=== PATIENT | female | born 1955 | race Caucasian/White ===

== ENCOUNTER 2017-05-06 21:07 | Emergency (ER) | payer SELFPAY ==
--- NOTE | 2017-05-06 21:55 | ED PDOC ---
Upper Extremity Pain/Injury Time Seen by Provider: 05/06/17 21:12 Chief Complaint (Nursing): Upper Extremity Problem/Injury Chief Complaint (Provider): Left shoulder pain History Per: Patient History/Exam Limitations: no limitations Additional Complaint(s): Patient is a 62 year old female presenting to the emergency department for left shoulder and nose pain after tripping over some stairs and falling on her left side and face. Denies loss of consciousness or memory deficits. PCP: none provided Past Medical History Reviewed: Historical Data, Nursing Documentation, Vital Signs, Unable To Obtain Vital Signs: Last Vital Signs Temp 97.9 F 05/06/17 21:10 Pulse 84 05/06/17 21:10 Resp 18 05/06/17 21:10 BP 175/100 H 05/06/17 21:10 Pulse Ox 99 05/06/17 21:10 - Family History Family History: States: Unknown Family Hx - Social History Current smoker - smoking cessation education provided: No Ex-Smoker (has not smoked in the last 12 months): No Alcohol: None Drugs: Denies - Home Medications Home Medications: Ambulatory Orders Medication Instructions Recorded Ibuprofen [Motrin Tab] 600 mg PO Q6 #30 tab 05/07/17 traMADol [Ultram] 50 mg PO TID #12 tab 05/07/17 - Allergies Allergies/Adverse Reactions: Allergies Allergy/AdvReac Type Severity Reaction Status Date / Time Unobtainable Allergy Verified 05/06/17 21:22 Review of Systems ROS Statement: Except As Marked, All Systems Reviewed And Found Negative ENT: Positive for: Nose Pain Musculoskeletal: Positive for: Shoulder Pain (left) Neurological: Negative for: Other (loss of consciousness or memory loss) Physical Exam - Reviewed Nursing Documentation Reviewed: Yes Vital Signs Reviewed: Yes - Physical Exam Appears: Positive for: Well, Non-toxic, No Acute Distress Head Exam: Positive for: ATRAUMATIC, NORMAL INSPECTION, NORMOCEPHALIC Skin: Positive for: Normal Color, Warm, Dry Eye Exam: Positive for: EOMI, Normal appearance, PERRL ENT: Positive for: Other (Nasal bridge swelling and 1.5 cm laceration on bridge of the nose. No septal hematoma.) Neck: Positive for: Normal, Painless ROM, Supple Cardiovascular/Chest: Positive for: Regular Rate, Rhythm. Negative for: Murmur Respiratory: Positive for: Normal Breath Sounds. Negative for: Accessory Muscle Use, Respiratory Distress Pulses-Radial (L): 2+ Pulses-Radial (R): 2+ Gastrointestinal/Abdominal: Positive for: Normal Exam, Soft. Negative for: Tenderness Extremity: Positive for: Tenderness (Left shoulder tender to palpation), Other ( Decreased sensation of ulnar aspect of left hand, able to spread fingers fully against resistance, able to flex and extend wrist, +thumbs up +okay sign +able to oppose thumb to all fingers). 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 Initial plan: Dilaudid 1 mg IVP Morphine 4 mg IVP Zofran 4 mg IVP X-Ray Left Humerus X-ray Left Shoulder Reevaluation 2248 Sedation note - see procedure note 2254 XR SHOULDER LEFT FINDINGS: Bones/joints: Inferior and medial dislocation of the left humeral head in relation to the glenoid fossa, consistent with anterior dislocation. Acute comminuted fracture of the lateral margin of the humeral head is also detected. Soft tissues: Limited. IMPRESSION: Anterior dislocation with additional finding is of acute fracture of the posterior-lateral humeral head is suggestive of a Hill-Sachs pattern 2320 Patient is waking up after sedation and reports feeling much better. [address] Rodriguez. Notes that clinical operations consultant paresthesias are not uncommon and usually resolve on their own. 0025 Discussed with patient opioid risks and benefits, as well as addictive potential. Patient verbalizes understanding. 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 Patient medically stable for discharge home. Follow up with Dr. Rodriguez on 2016. Pt. feeling much better. Scribe Attestation: Documented by Michelle Saul and Elin Jackson, acting as a scribe for Paul Denson MD. Provider Scribe Attestation: All medical record entries made by the Scribe were at my direction and personally dictated by me. I have reviewed the chart and agree that the record accurately reflects my personal performance of the history, physical exam, medical decision making, and the department course for this patient. I have also personally directed, reviewed, and agree with the discharge instructions and disposition. Procedures - Time-Out Type of Procedure: Joint Reduction Site of Procedure: Left Shoulder Correct Patient: Yes Correct Procedure: Yes Correct Site Marked: Yes Physician Name: Dr. Paul Denson - Joint Reduction Joint Reduction Site: shoulder (L) Conscious Sedation: Yes Reduction Attempts: 2 Pre-Procedure NV Exam: Yes Post Joint Reduction Film: joint reduced Disposition - Clinical Impression Clinical Impression: Shoulder dislocation - Disposition Referrals: Cory Rodriguez III, MD [Staff Provider] - Disposition: Routine/Home Disposition Time: 00:29 Condition: STABLE Prescriptions: Ibuprofen [Motrin Tab] 600 mg PO Q6 #30 tab traMADol [Ultram] 50 mg PO TID #12 tab Instructions: Shoulder Dislocation (ED), Deep Sedation (ED), Opioid Pain Management (ED) Forms: [employer] ([place]) - POA Present On Arrival: None Procedure - Procedure and Findings -: DEEP SEDATION PROCEDURE NOTE: 05/06/2017 2249 Patient placed on manager monitoring and end title CO2 monitor. IV access established, 1L NS given Patient consented to procedure: verbal/written consent obtained. Time out done. Propofol given. Patient continuously monitored on end title CO2 and cardiac monitors. Patient tolerated procedure well. Prod Sedation INTRA-PROCEDURE - Medications Medications Given: Propofol (Diprivan) 100 mg IV ONCE ONE Stop: 05/07/17 00:07 Discontinued Medications Hydromorphone HCl (Dilaudid) 1 mg IVP STAT STA Stop: 05/06/17 21:43 Last Admin: 05/06/17 21:46 Dose: 1 mg Hydromorphone HCl (Dilaudid) Confirm Administered Dose 2 mg .ROUTE .STK-MED ONE Stop: 05/06/17 21:46 Hydromorphone HCl (Dilaudid) 2 mg IVP STAT STA Stop: 05/06/17 22:10 Last Admin: 05/06/17 22:25 Dose: 2 mg Hydromorphone HCl (Dilaudid) Confirm Administered Dose 2 mg .ROUTE .STK-MED ONE Stop: 05/06/17 22:24 Morphine Sulfate (Morphine) 4 mg IVP STAT STA Stop: 05/06/17 21:23 Last Admin: 05/06/17 21:29 Dose: 4 mg Ondansetron HCl (Zofran Inj) 4 mg IVP STAT STA Stop: 05/06/17 21:23 Last Admin: 05/06/17 21:30 Dose: 4 mg Propofol (Diprivan) Confirm Administered Dose 200 mg .ROUTE .STK-MED ONE Stop: 05/06/17 22:37 Propofol (Diprivan) 100 mg IV STAT STA Stop: 05/06/17 22:39 Last Admin: 05/06/17 22:39 Dose: 100 mg Propofol (Diprivan) Confirm Administered Dose 200 mg .ROUTE .STK-MED ONE Stop: 05/06/17 23:24
[2017-05-06] MEDS ORDERED: Propofol 10 mg/ml Inj (20 ML) ONE ×2 (22:36→23:23)
[2017-05-06] MEDS ORDERED: Propofol 10 mg/ml Inj (20 ML) IV STA (22:38)
[2017-05-06 23:19] VITALS: RESP 16; TEMP 97.7
[2017-05-07 00:03] VITALS: O2SAT 99
[2017-05-07] MEDS ORDERED: Propofol 10 mg/ml Inj (20 ML) IV ONE (00:06)
[2017-05-07 02:18] VITALS: BP 142/88; PULSE 89
--- NOTE | 2017-05-07 09:33 | RAD ---
PROCEDURE: Radiographs of Nasal Bones HISTORY: r/o nasal bone fracture COMPARISON: None available. TECHNIQUE: Frontal and lateral radiographs of the nasal bones. FINDINGS: Mildly inferiorly displaced bilateral nasal bone fractures with overlying soft tissue swelling. Anterior nasal spine appears intact. IMPRESSION: There are mildly inferiorly displaced bilateral nasal bone fractures . Consider followup CT scan of the maxillofacial skeleton
--- NOTE | 2017-05-07 09:37 | RAD ---
PROCEDURE: Left shoulder dated 05/06/2017 2158 hours HISTORY: Status post fall. COMPARISON: Comparison made with prior radiographs left shoulder 05/06/2017 at 2201 hours FINDINGS: Current study reveals a anterior inferior dislocation of the left humeral head with respect to the glenoid. In addition, there is a displaced fracture of the greater tuberosity left humerus. Consider followup CT scan of the left shoulder further evaluation. AC joint appears. No evidence of subcutaneous emphysema or radiopaque foreign bodies. . Impression: There is a anterior inferior dislocation left humeral head with displaced fracture of the greater tuberosity.
--- NOTE | 2017-05-07 09:38 | RAD ---
PROCEDURE: Left humerus dated 12/01/2016 HISTORY: Status post fall. COMPARISON: Correlation made with concurrent radiographs of the left shoulder FINDINGS: BONES: Re- demonstrated is an anterior inferior dislocation left humeral head with respect to the glenoid and displaced fracture of the greater tuberosity SOFT TISSUES: No evidence of subcutaneous air or radiopaque foreign bodies OTHER FINDINGS: None. IMPRESSION: Anterior inferior dislocation left humeral head with suspect to the glenoid and displaced fracture of the greater tuberosity. .
--- NOTE | 2017-05-07 09:41 | RAD ---
PROCEDURE: Left shoulder dated 05/06/2017 Two views of the left shoulder the 1st labeled image #1 obtained at 2315 hours and the 2nd image labeled #2 at 2328 hours. HISTORY: Status post shoulder reduction COMPARISON: Comparison made with radiographs of the left shoulder 05/06/2017 at 2158 hours The 1st image demonstrates persistent anterior dislocation of the left humeral head with respect to the glenoid and fracture of the extending to the greater tuberosity. Second image demonstrates status post reduction previously noted anterior inferior dislocation. Fracture of the greater tuberosity is less well seen. Impression: Status post reduction previously noted anterior inferior dislocation left humeral head with respect to the glenoid. . Fracture of the greater tuberosity is less well seen compared prior exam
== END 2017-05-07 01:15 | disposition home or self-care (01) ==
LOC: H.ER 21:07
DX: S43.005A Unspecified dislocation of left shoulder joint, initial encounter (principal); W01.0XXA Fall on same level from slipping, tripping and stumbling without subsequent striking against object, initial encounter
CPT/HCPCS: 23650; 70160; 73020; 73030; 73060; 96374; 96375; 96376; 99284; J1170; J2270; J2405; J2704